=== PATIENT | female | born 1965 | race Caucasian/White ===

== ENCOUNTER → 2016-06-03 | Outpatient (CLI) | payer OTHER ==
--- NOTE | 2016-06-04 12:31 | MAMMOGRAPHY REPORT ---
BILATERAL DIGITAL SCREENING MAMMOGRAM TOMOSYNTHESIS WITH CAD: 06/03/2016 CLINICAL HISTORY: Routine screening. Patient has no complaints. TECHNIQUE: Breast tomosynthesis in addition to standard 2D mammography was performed. Current study was also evaluated with a Computer Aided Detection (CAD) system. COMPARISON: Comparison is made to exams dated: 05/29/2015 mammogram, 05/24/2014 mammogram, 05/19/2013 m ammogram, 05/14/2012 mammogram, 05/13/2011 mammogram, and 04/09/2010 mammogram - [facility]. BREAST COMPOSITION: There are scattered areas of fibroglandular density in both breasts. FINDINGS: There is slight interval increase in size of a lobulated 7 x 4 mm mass in the approximate 8:00 left breast. Although this could represent a fluctuating cyst, definitive characterization wi th ultrasound and possible additional mammographic views is recommended. There are other stable lobulated masses with lucent notches in each upper outer quadrant, which most likely represent intramammary lymph nodes. No new suspicious microcalcifications or focal areas of architectural distortion are identified. IMPRESSION: ACR BI-RADS CATEGORY 0: INCOMPLETE EVALUATION: NEED ADDITIONAL IMAGING EVALUATION The 7 mm mass in the left 8:00 breast needs additional evaluation. The patient will be called to schedule an appointment. Approximately 10% of breast cancers are not detected with mammography. A negative mammographic repor t should not delay biopsy if a clinically suggestive mass is present. Geeta Brooks M.D. ay/:06/03/2016 17:08:04 Family Literacy Coordinator: Kenia ANAYA(Parmjit)(Bridget), [facility] letter sent: Addl Imaging 0 BI-RADS Code: ACR BI-RADS Category 0: Incomplete Evaluation: Need Additional Imaging Evaluation
== END | disposition home or self-care (01) ==
LOC: C.MAMM 08:01
PROVIDERS: ATTEND Family Medicine
DX: Z12.31 Encounter for screening mammogram for malignant neoplasm of breast (principal); N63 Unspecified lump in breast

== ENCOUNTER → 2016-06-18 | Outpatient (CLI) | payer OTHER ==
--- NOTE | 2016-06-18 13:35 | MAMMOGRAPHY REPORT ---
ULTRASOUND OF BOTH BREASTS: 06/18/2016 CLINICAL HISTORY: Call back from screening mammography for a slight increase in size of a 7 mm lobul ated mass in the 8:00 left breast. COMPARISON: Comparison is made to exams dated: 05/29/2015 mammogram, 05/24/2014 mammogram, 05/19/2013 m ammogram, 05/14/2012 mammogram, 05/13/2011 mammogram, and 04/09/2010 mammogram - [facility]. FINDINGS: Targeted ultrasound was performed in the 8:00 to 9:00 axes of the left breast. In the 9: 00 breast, 4 cm from the nipple, there is a small cluster of microcysts versus cyst with internal no nvascular septations measuring 8.4 x 3.4 x 7.0 mm. This correlates well with the mammographic mass and is a benign cyst versus cyst cluster. No further workup is needed at this time. Recommend foll ow-up at time of next annual screening mammogram. IMPRESSION: ACR BI-RADS CATEGORY 2: BENIGN The slightly increasing lobulated oval mass in the 8:00 to 9:00 left breast correlates with a small cluster of microcysts versus cyst with multiple lobulations in the 9:00 left breast on ultrasound. This is benign and no further workup is needed at this time. Recommend follow-up in 1 year for next annual screening mammogram. These results and recommendations were discussed with the patient at the time of the exam. Geeta Brooks M.D. ay/:06/18/2016 12:31:24 Aviation Technical Systems Specialist: Dr. Geeta Brooks, [facility] letter sent: Normal 1/2 BI-RADS Code: ACR BI-RADS Category 2: Benign
== END | disposition home or self-care (01) ==
LOC: C.MAMM 10:53
PROVIDERS: ATTEND Family Medicine
DX: N63 Unspecified lump in breast (principal)

== ENCOUNTER → 2017-05-18 | Outpatient (CLI) | payer OTHER ==
[2017-05-18 12:26] LABS: BASO % 0.4 %; BASO ABS # 0.05 K/uL (0-0.2); EOS % 0.7 %; EOS ABS # 0.08 K/uL (0-0.5); HEMATOCRIT 37.5 % (37-47); HEMOGLOBIN 12.8 g/dL (12.0-16.0); IG# 0.24 K/uL (0.00-0.02); LYMPH % 24.1 %; LYMPH ABS # 2.79 K/uL (1.2-3.4); MEAN CELL VOLUME 95.2 fL (80-100); MEAN CORPUSCULAR HEMOGLOBIN 32.5 pg (25-34); MEAN CORPUSCULAR HGB CONC 34.1 g/dl (32-36); MEAN PLATELET VOLUME 9.6 fL (7.4-10.4); MONO % 8.5 %; MONO ABS # 0.98 K/uL (0.11-0.59); NEUT % 64.2 %; NEUT ABS # 7.42 K/uL (1.4-6.5); PLATELET COUNT 614 K/uL (130-400); RED CELL DISTRIBUTION WIDTH CV 12.6 % (11.5-14.5); RED CELL DISTRIBUTION WIDTH SD 43.6 fL (36.4-46.3); WHITE BLOOD COUNT 11.56 K/uL (4.8-10.8)
[2017-05-18 12:42] LABS: ALBUMIN 3.1 gm/dl (3.4-5.0); BLOOD UREA NITROGEN 4 mg/dl (7-18); CALCIUM 9.4 mg/dl (8.5-10.1); CARBON DIOXIDE 28 mmol/L (21-32); CREATININE 0.58 mg/dl (0.60-1.20); GLUCOSE 98 mg/dl (70-99); POTASSIUM 3.9 mmol/L (3.5-5.1); SODIUM 136 mmol/L (136-145)
[2017-05-18 12:45] LABS: ALKALINE PHOSPHATASE 150 U/L (45-117); ALT/SGPT 84 U/L (12-78); AST/SGOT 39 U/L (15-37); TOTAL PROTEIN 7.2 gm/dl (6.4-8.2)
== END | disposition home or self-care (01) ==
LOC: C.LABPVFM 09:49
PROVIDERS: ATTEND Nurse Practitioner Family
DX: R19.7 Diarrhea, unspecified (principal)

== ENCOUNTER → 2017-06-08 | Outpatient (CLI) | payer OTHER ==
--- NOTE | 2017-06-08 15:18 | MAMMOGRAPHY REPORT ---
BILATERAL DIGITAL SCREENING MAMMOGRAM TOMOSYNTHESIS WITH CAD: 06/08/2017 CLINICAL HISTORY: Routine screening. Patient has no complaints. TECHNIQUE: Breast tomosynthesis in addition to standard 2D mammography was performed. Current study was also evaluated with a Computer Aided Detection (CAD) system. COMPARISON: Comparison is made to exams dated: 06/18/2016 ultrasound, 06/03/2016 mammogram, 05/29/2015 ma mmogram, 05/24/2014 mammogram, 05/19/2013 mammogram, and 05/14/2012 mammogram - [facility]ter. BREAST COMPOSITION: There are scattered areas of fibroglandular density in both breasts. FINDINGS: No suspicious mass, architectural distortion or cluster of microcalcifications is seen. T here are stable intramammary lymph nodes in each lateral breast. IMPRESSION: ACR BI-RADS CATEGORY 1: NEGATIVE There is no mammographic evidence of malignancy. A 1 year screening mammogram is recommended. The pa tient will receive written notification of the results. Approximately 10% of breast cancers are not detected with mammography. A negative mammographic report should not delay biopsy if a clinically suggestive mass is present. Geeta Brooks M.D. ay/:06/08/2017 08:26:54 Histopathologist: Opal ANAYA(Parmjit)(Bridget), [facility] letter sent: Normal 1/2 BI-RADS Code: ACR BI-RADS Category 1: Negative
== END | disposition home or self-care (01) ==
LOC: C.MAMM 07:49
PROVIDERS: ATTEND Nurse Practitioner Family
DX: Z12.31 Encounter for screening mammogram for malignant neoplasm of breast (principal)

== ENCOUNTER → 2017-07-22 | Outpatient (CLI) | payer OTHER | END | disposition home or self-care (01) | LOC: C.LABPVFM 08:38 | PROVIDERS: ATTEND Registered Nurse | DX: R94.6 Abnormal results of thyroid function studies (principal) ==

== ENCOUNTER 2021-02-08 19:35 | Observation (INO) ==
[2021-02-08 22:09] LABS: Basophils # (auto) 0.04 K/uL (0-0.2); Basophils % (auto) 0.2 %; Eosinophils # (auto) 0.04 K/uL (0-0.5); Eosinophils % (auto) 0.2 %; Hematocrit (blood only) 40.5 % (37-47); Hemoglobin 14.3 g/dL (12.0-16.0); Immature Granulocytes # (auto) 0.09 K/uL (0.00-0.02); Immature Granulocytes % (auto) 0.4 %; Lymphocytes # (auto) 2.46 K/uL (1.2-3.4); Lymphocytes % (auto) 12.1 %; Mean Corpuscular Hemoglobin 32.8 pg (25-34); Mean Corpuscular Hgb Conc 35.3 g/dL (32-36); Mean Corpuscular Volume 92.9 fL (80-100); Mean Platelet Volume 9.2 fL (7.4-10.4); Monocytes # (auto) 0.84 K/uL (0.11-0.59); Monocytes % (auto) 4.1 %; Neutrophils # (auto) 16.85 K/uL (1.4-6.5); Platelet Count 507 K/uL (130-400); RDW Coefficient of Variation 13.2 % (11.5-14.5); RDW Standard Deviation 44.9 fL (36.4-46.3); Red Blood Count 4.36 M/uL (4.2-5.4); White Blood Count 20.32 K/uL (4.8-10.8)
[2021-02-08 22:19] LABS: Appearance Urine Cloudy (Clear); Bacteria Urine Automated Negative (Negative); Bilirubin Urine Negative (Negative); Blood Urine Trace (Negative); Color Urine Yellow; Epithelial Cell Urine Auto >30 /lpf (0-5); Glucose Urine UA Negative (Negative); Ketones Urine Trace (Negative); Leukocyte Esterase Urine Negative (Negative); Nitrite Urine Negative (Negative); Specific Gravity Urine 1.017 (1.000-1.030); Urobilinogen Urine Negative (Negative); pH Urine 7.5 (4.5-7.5)
[2021-02-08 22:29] LABS: Protein Urine Trace (Negative)
[2021-02-08 22:30] LABS: Albumin Level 4.3 gm/dl (3.4-5.0); BUN Creatinine Ratio 9.5 (10-20); Calcium 9.3 mg/dl (8.5-10.1); Creatinine Clr Calc Pharmacy 79.2 ml/min; Est GFR (African American) 105.2 ml/min; Est GFR (Non-African American) 90.8 ml/min; Potassium 3.7 mmol/L (3.5-5.1)
[2021-02-08 22:33] LABS: Albumin Globulin Ratio 1.2 (0.9-2); Bilirubin,Total 0.6 mg/dl (0.2-1); Globulin 3.7 gm/dl (2.5-4.0)
[2021-02-09] MEDS ORDERED: OPTIRAY 320 100ml IV ONE
[2021-02-09] MEDS ORDERED: KETOROLAC TROMETHAMINE 15 MG/ML VIAL IV ONE (00:18)
[2021-02-09] MEDS ORDERED: cefOXitin 2,000 MG/60 ML BAG IV STA (00:22)
--- NOTE | 2021-02-09 00:41 | History & Physical Report ---
Date of Service February 09, 2021 Assessment & Plan (1) Acute appendicitis: Plan: Due to the patient's clinical presentation along with imaging she will be placed in the hospital on observation status with plans to perform an appendectomy. Analgesics will be provided Antiemetics will be provided We will continue antibiotics. She has received her first dose of cefoxitin in the emergency department this antibiotic will be continued We will maintain n.p.o. status We will hydrate gently with IV fluids We will check a preoperative chest x-ray We will check a preoperative EKG I have discussed the operation with the patient. I discussed the risks, benefits, and alternatives as well as gone over the expected postoperative recovery and she wishes to proceed. We will use SCDs for DVT prevention. No chemical means to be used in anticipation of surgery (2) Hypertension: Plan: Patient may have elevated blood pressure due to the fact that she was previously taking antihypertensive medication but is stopped taking this medication. In the short-term we will utilize as needed IV hydralazine. If she remains persistently hypertensive we will request a hospitalist consultation. (3) Hyponatremia: Plan: Because of patient's hyponatremia is unclear. Could be due to poor oral intake with her acute illness. Her medicines have been reviewed and there are no obvious offending medications that would have caused this issue. She will be hydrated with IV fluids as noted above we will repeat labs in the morning. History of Present Illness Chief Complaint: Abdominal pain Primary Care Provider: Jas Wray III, BRENDA This is a 56-year-old female who presented to [facility] emergency department secondary to abdominal pain. Patient notes that the pain has been present for approximately 24 hours. The pain is located throughout her abdomen and generalized fashion. Patient notes that she suffers from irritable bowel syndrome alternating with episodes of constipation and diarrhea and notes that the pain initially began in pain that was similar to what she experienced from discomfort from her irritable bowel syndrome. She does note that the pain became somewhat more severe and did not resolve like it usually does so she presented to the emergency department. She denies any radiation of the pain. She notes that the pain is worse with certain movements and is improved with lying still with her knee slightly bent. She has had some nausea without any vomiting. She has had poor oral intake over the past 24 hours. Her most recent oral intake was some water several hours ago. She denies any prior abdominal surgeries. In the emergency department patient had labs and imaging which independent reviewed. CT scan of the abdomen pelvis showed the patient had a distended and thickened and inflamed appendix. A 6 mm appendicolith was noted in the distal appendix measured approximately 12 mm. These findings were felt to be consistent with acute appendicitis. CBC revealed white blood cell count was elevated at 20.32. Her hemoglobin and hematocrit were both within normal range. Platelet count was slightly elevated at 507,000. A chemistry profile showed sodium was 129. Potassium, BUN, and creatinine were all within normal range. Urinalysis was not indicative of infection. A Covid test has been performed and is pending. In addition test has not been performed as the patient reports she has already gone through menopause. Patient was noted to be hypertensive in the emergency department. Patient says that she was previously taking an antihypertensive medication but she stopped this as it made her cough. Patient notes that she is fairly active when she is feeling well. She says that she feels she can easily negotiate 2 flights of steps without any chest pain or shortness of breath. At the time of my interview the patient is resting comfortably in bed she was in no distress Allergies Allergy/AdvReac Type Severity Reaction Status Date / Time Sulfa (Sulfonamide Allergy Unknown Unknown Verified 02/09/21 02:45 Antibiotics) Home Medications Medication Instructions Recorded Confirmed Type calcium carbonate 600 mg (1,500 1 tab PO QAM 02/09/21 02/09/21 History mg)-vitamin D3 200 unit tablet (Calcium 600 + D(3)) cholecalciferol (vitamin D3) 25 25 mcg PO QAM 02/09/21 02/09/21 History mcg (1,000 unit) tablet (Vitamin D3) multivitamin 1 tab PO QAM 02/09/21 02/09/21 History Past Med/Surg History Social History Smoking Status: Never smoker Hx Alcohol Use: Yes Hx Substance Use: No Preferred Language: Persian Communication Ability: Effective Hose Builder Required: No Beliefs That Will Affect Care: None Current Living Situation: Spouse Other Information That Helps Us Care for You: No Feels Safe at Home: Yes Safety Concerns: Feels Safe At This Time Assistive Devices: Glasses Review of Systems Constitutional: no fever and no chills Eyes: no diplopia Ear, Nose, Mouth, Throat: no ear pain Respiratory: no cough and no dyspnea Cardiovascular: no chest pain Gastrointestinal: + abdominal pain and + nausea; no vomiting Genitourinary: no dysuria Musculoskeletal: no back pain Integumentary: no rash Neurologic: no localized weakness Physical Exam Constitutional: well developed and well nourished; no acute distress Eyes: no conjunctival abnormality wears glasses ENMT: Ears: no hearing impairment and no external ear abnormality Neck: trachea midline Respiratory: normal respiratory effort, lungs clear to auscultation Cardiovascular: Rate/Rhythm: regular rate and regular rhythm Gastrointestinal (Abdomen): abdomen is soft without distention; BS are present; pain noted with palpation in RLQ over McBurnery's point Musculoskeletal: no calf tenderness Skin: no rashes Neurologic: moves all extremities Psychiatric: A+Ox3, euthymic affect Results & Data Results & Data ([facility]) Vital Signs (Past 12 Hours) Vital Signs Temp Pulse Pulse Resp BP BP Pulse Ox 02/09/21 00:01 89 16 200/103 H 98 02/08/21 19:38 36.2 C L 98 H 16 224/119 H 100 Supervising Physician Co-Signing Physician Notes Patient seen and examined, labs and imaging reviewed, agree with above. 56-year-old female with periumbilical pain that migrated to her right lower quadrant. On exam she is afebrile with stable vitals. Tender to palpation in right lower quadrant with localized guarding. Labs with leukocytosis. CT scan personally reviewed and interpreted, shows acute nonperforated appendicitis. Plan for laparoscopic appendectomy The risk the procedure were discussed to include but not limited to bleeding, infection, normal appendix, damage surrounding structures, need for future more extensive surgery, conversion open, and the risk of anesthesia Potential discharge this afternoon versus tomorrow depending on clinical course PG Care Time/CCT Total # of Minutes Spent Total Time Spent with Patient: Total time spent is greater than 50% in coordination of care (as documented) at patient's floor/unit and/or counseling patient: Coding Level of Care Code INT OBSERVATION CARE 70M LVL 3 Diagnoses Acute appendicitis K35.80 Acute appendicitis type: unspecified acute appendicitis type Hypertension I10 Hyponatremia E87.1 (1) Acute appendicitis Acute appendicitis type: unspecified acute appendicitis type Qualified Code(s): K35.80 - Unspecified acute appendicitis
[2021-02-09] MEDS ORDERED: MoRPHine SULFATE 4 MG/ML 1 ML CARP\\VIAL IV PRN ×2 (00:42→14:56)
[2021-02-09] MEDS ORDERED: ONDANSETRON INJ 2 MG/ML 2 ML VIAL IV PRN ×2 (00:42→12:43)
--- NOTE | 2021-02-09 00:45 | Emergency Department Note ---
Impression & Plan Acute appendicitis, Abdominal pain, Leukocytosis ED Provider Note NAME: SALOME CARLSON AGE: 56 SEX: F : 1965 ARRIVES VIA: Walk-In INFORMANT: Patient ED PROVIDER(S): Milton Patton DO CHIEF COMPLAINT: Abdominal pain HPI: Patient is a 56-year-old female who presents ER for lower abdominal pain located in the right lower quadrant suprapubic region which started earlier this morning. She has some diarrhea. No vomiting. Denies any dysuria urgency or frequency. She notes supporting her belly makes it feel better. She has some associated nausea. She has a mild headache but no change in vision. No chest pain or shortness of breath. No other exacerbating or remitting factors. Pain is sharp and stabbing. Is fairly constant and feels as though she has to go to the bathroom. ROS: See above HPI for pertinent positives & negatives. A total of 10 systems reviewed and were otherwise negative. PAST MEDICAL HISTORY:See Below PAST SURGICAL HISTORY:See Below FAMILY HISTORY:See Below SOCIAL HISTORY:See Below HOME MEDICATIONS:See Below ALLERGIES:See Below VITALS:See Below PHYSICAL EXAMINATION: GENERAL: Sitting up in bed, alert, well appearing, well nourished, no distress, non-toxic EYE EXAM: normal conjunctiva. OROPHARYNX: no exudate, no erythema, lips, buccal mucosa, and tongue normal and mucous membranes are moist NECK: supple, no nuchal rigidity, no adenopathy, non-tender LUNGS: Clear to auscultation. Normal chest wall mechanics HEART: no murmurs, S1 normal and S2 normal ABDOMEN: abdomen soft, tender palpation right lower quadrant, normo-active bowel sounds, no masses, no rebound or guarding. UPPER EXTREMITIES: upper extremities are grossly normal. LOWER EXTREMITIES: No pitting edema. NEURO EXAM: Normal sensorium, cranial nerves II-XII grossly intact, normal speech, no gross weakness of arms, no gross weakness of legs. MEDICAL DECISION MAKING: Patient is a 56-year-old female who presents the ER for lower abdominal pain. IV was established blood work was obtained. Labs show leukocytosis of 20,000. No significant anemia. BMP with mild hyponatremia at 129. LFTs bilirubin and lipase is unremarkable. UA was contaminated. CT abdomen pelvis showed acute appendicitis. Patient was given IV fluids, Toradol and cefoxitin. Discussed with Juan Jose Mott from general surgery who evaluate the patient at bedside and will admit the patient. Blood pressure was significantly elevated at 200. Question if this is secondary to pain although she notes it is fairly mild. Will defer to admitting team. Triage Nursing notes reviewed. Limited review of prior medical records performed Vital Signs: reviewed and remarkable for HTN Differential diagnosis: Differential diagnoses includes but is not limited to gastritis, peptic ulcer disease, GERD, gallbladder disease, pancreatitis, small bowel obstruction, acute coronary syndrome, pericarditis, ischemic bowel, irritable bowel disease, irritable bowel syndrome, appendicitis, diverticulitis, malignancy, hernia, urinary tract infection, torsion, perforation, trauma, infectious. ER treatment provided: See below Diagnostics interpreted by me: ECG: none Cardiac Monitoring: An order was placed for continuous cardiac monitoring. The monitor shows a rate of 82 with sinus rhythm. Laboratory studies: As stated above and show below. Imaging studies: CT abdomen pelvis shows acute appendicitis Consultation(s): Discussed with Juan Jose Mott from general surgery Procedures: none Critical Care: None Past Med/Surg History Social History Smoking Status: Never smoker Feels Safe at Home: Yes Allergies Allergies Allergy/AdvReac Type Severity Reaction Status Date / Time N Allergy Unknown Uncoded 06/09/02 15:18 SULFA Allergy Unknown Uncoded 06/09/02 15:18 Home Meds Previous Rx's Medication Instructions Recorded albuterol sulfate 90 mcg/actuation See Rx Instructions INHALATION 03/12/20 aerosol inhaler (Ventolin HFA) .COMPLEX PRN #8.5 g azelastine 137 mcg (0.1 %) nasal 2 spray INTRANASAL BID #30 ml 03/12/20 spray aerosol prednisone 10 mg tablet See Rx Instructions PO DAILY #30 03/12/20 tab Results & Data (ED) Vital Signs Vital Signs - 24 hr 02/08/21 19:38 02/09/21 00:01 Temperature 36.2 C L Temperature Source Temporal Artery Scan Pulse Rate 98 H Pulse Rate [Right] 89 Pulse Rhythm [Right] Regular Pulse Strength [Right] Normal Respiratory Rate 16 16 Respiratory Effort / Characteristics Non-Labored Spontaneous Non-Labored Spontaneous Respiratory Depth Normal Blood Pressure 224/119 H Blood Pressure [Right Arm] 200/103 H Blood Pressure Mean 154 Blood Pressure Mean [Right Arm] 135 Blood Pressure Position Sitting Blood Pressure Position [Right Arm] Lying Pulse Oximetry 100 98 Oxygen Delivery Method Room Air Room Air Sepsis Recent Fever Within 48 Hours No Sepsis New/Unexplained Change in Mental Status N/A Sepsis Action Taken by Nursing No Action Required Laboratory Data Result diagrams: 02/08/21 21:58 02/08/21 21:58 Lab Results 02/08/21 02/08/21 02/08/21 Range/Units 21:58 21:58 21:58 WBC 20.32 H (4.8-10.8) K/uL RBC 4.36 (4.2-5.4) M/uL Hgb 14.3 (12.0-16.0) g/dL Hct 40.5 (37-47) % MCV 92.9 (80-100) fL MCH 32.8 (25-34) pg MCHC 35.3 (32-36) g/dL RDW Std Deviation 44.9 (36.4-46.3) fL RDW Coeff of Danny 13.2 (11.5-14.5) % Plt Count 507 H (130-400) K/uL MPV 9.2 (7.4-10.4) fL Immature Gran % (Auto) 0.4 % Neut % (Auto) 83.0 % Lymph % (Auto) 12.1 % [place] % (Auto) 4.1 % Eos % (Auto) 0.2 % Baso % (Auto) 0.2 % Neut # (Auto) 16.85 H (1.4-6.5) K/uL Lymph # (Auto) 2.46 (1.2-3.4) K/uL [place] # (Auto) 0.84 H (0.11-0.59) K/uL Eos # (Auto) 0.04 (0-0.5) K/uL Baso # (Auto) 0.04 (0-0.2) K/uL Immature Gran # (Auto) 0.09 H (0.00-0.02) K/uL Sodium 129 L (136-145) mmol/L Potassium 3.7 (3.5-5.1) mmol/L Chloride 98 (98-107) mmol/L Carbon Dioxide 25 (21-32) mmol/L Anion Gap 6.0 (3-11) BUN 7 (7-18) mg/dl Creatinine 0.73 (0.6-1.2) mg/dl Est Cr Clr Drug Dosing 79.2 ml/min Est GFR ( Amer) 105.2 ml/min Est GFR (Non-Af Amer) 90.8 ml/min BUN/Creatinine Ratio 9.5 L (10-20) Glucose 129 H (70-99) mg/dl Calcium 9.3 (8.5-10.1) mg/dl Total Bilirubin 0.6 (0.2-1) mg/dl AST 15 (15-37) U/L ALT 33 (12-78) U/L Alkaline Phosphatase 89 (45-117) U/L Total Protein 8.0 (6.4-8.2) gm/dl Albumin 4.3 (3.4-5.0) gm/dl Globulin 3.7 (2.5-4.0) gm/dl Albumin/Globulin Ratio 1.2 (0.9-2) Lipase 100 (73-393) U/L Urine Color Yellow Urine Appearance Cloudy A (Clear) Urine pH 7.5 (4.5-7.5) Ur Specific [place] 1.017 (1.000-1.030) Urine Protein Trace H (Negative) Urine Glucose (UA) Negative (Negative) Urine Ketones Trace H (Negative) Urine Blood Trace H (Negative) Urine Nitrite Negative (Negative) Urine Bilirubin Negative (Negative) Urine Urobilinogen Negative (Negative) Ur Leukocyte Esterase Negative (Negative) Urine WBC (Auto) 1-5 (0-5) /hpf Urine RBC (Auto) 5-10 H (0-4) /hpf U Hyaline Cast (Auto) 1-5 (0-5) /lpf U Epithel Cells (Auto) >30 H (0-5) /lpf Urine Bacteria (Auto) Negative (Negative) Administered Medications Cefoxitin Sodium (Mefoxin) 2,000 mg in 60 mls @ 100 mls/hr IV NOW STA Stop: 02/09/21 00:57 Last Admin: 02/09/21 00:32 Dose: 100 mls/hr Documented by: [id number] Discontinued Medications Ioversol (Optiray 320 100ml) 94 ml IV ONCE ONE Stop: 02/09/21 00:01 Last Admin: 02/09/21 00:01 Dose: 94 ml Documented by: [id number] Ketorolac Tromethamine (Ketorolac Tromethamine 15 Mg/Ml Vial) 15 mg IV NOW ONE Stop: 02/09/21 00:19 Last Admin: 02/09/21 00:25 Dose: 15 mg Documented by: [id number] Discharge Plan Visit Data Chief Complaint: Abdominal Pain Stated Complaint: ABDOMINAL PAIN WORSENING OVER THE DAY ED Provider: Milton Patton Discharge Problem: Acute appendicitis, Abdominal pain, Leukocytosis Forms Stand Alone Forms: [facility] [email or web address] Prescriptions Prescriptions: No Action azelastine 137 mcg (0.1 %) aerosol,spray 2 spray intranasal BID Qty: 30 RF: 2 albuterol sulfate [Ventolin HFA] 90 mcg/actuation HFA aerosol inhaler See Rx Instructions inhalation .COMPLEX PRN (Reason: shortness of breath or wheezing) Qty: 8.5 RF: 0 prednisone 10 mg tablet See Rx Instructions PO DAILY Qty: 30 RF: 0 Referrals Referrals: Jas Wray III, CRNP [Primary Care Provider] - Discharge Problem: Acute appendicitis Qualifiers: Acute appendicitis type: unspecified acute appendicitis type Qualified Code(s): K35.80 - Unspecified acute appendicitis Abdominal pain Qualifiers: Abdominal location: unspecified location Qualified Code(s): R10.9 - Unspecified abdominal pain Leukocytosis Qualifiers: Leukocytosis type: unspecified Qualified Code(s): D72.829 - Elevated white blo od cell count, unspecified
[2021-02-09] MEDS ORDERED: hydrALAZINE HCL 20 MG/ML VIAL IV PRN (01:04)
[2021-02-09] MEDS: LACTATED RINGER'S 1,000 ML IV SCH ×2 (04:49→14:58)
[2021-02-09] MEDS: cefOXitin 2,000 MG in DEXTROSE 5% 50 ML IV SCH ×3 (05:30→17:50)
--- NOTE | 2021-02-09 05:55 | Surgery Progress Note ---
Date of Service February 09, 2021 Assessment & Plan (1) Acute appendicitis: Plan: Continue analgesics Continue antiemetics Continue antibiotics in the form of cefoxitin We will maintain n.p.o. status Continue hydration with IV fluids Preoperative chest x-ray did not show any evidence of pneumonia or CHF EKG did not show any evidence of ischemic changes Covid test has been performed and is noted to be negative Plan remains to have patient undergo appendectomy later today We will use SCDs for DVT prevention. No chemical means to be used in anticipation of surgery (2) Hypertension: Plan: BP is improved with the use of intravenous hydralazine. We will continue to monitor (3) Hyponatremia: Plan: A.m. labs this morning are pending Admission and Anticipated Discharge Date Admission Date: February 09, 2021 Supervising Physician Co-Signing Physician Notes Patient seen and examined, labs and imaging reviewed, agree with above. 56-year-old female with periumbilical pain that migrated to her right lower quadrant. On exam she is afebrile with stable vitals. Tender to palpation in right lower quadrant with localized guarding. Labs with leukocytosis. CT scan personally reviewed and interpreted, shows acute nonperforated appendicitis. Plan for laparoscopic appendectomy The risk the procedure were discussed to include but not limited to bleeding, infection, normal appendix, damage surrounding structures, need for future more extensive surgery, conversion open, and the risk of anesthesia Potential discharge this afternoon versus tomorrow depending on clinical course Subjective Patient is resting comfortably in bed. She continues to have right lower quadrant abdominal pain although it is no worse than what was noted at the time of my exam in the emergency department. She denies any nausea or vomiting. She denies any fevers, shakes, chills. Physical Exam Gastrointestinal (Abdomen): Pain noted with palpation in the right lower quadrant of the abdomen. This is similar to what was noted at time of exam in the emergency department Results & Data ([facility]) Vital Signs (Past 12 Hours) Vital Signs Temp Pulse Pulse Pulse Resp BP BP 02/09/21 04:45 36.7 C 93 H 17 117/98 02/09/21 04:04 81 16 02/09/21 02:32 74 16 02/09/21 00:01 89 16 02/08/21 19:38 36.2 C L 98 H 16 224/119 H BP Pulse Ox 02/09/21 04:45 98 02/09/21 04:04 179/94 H 98 02/09/21 02:32 184/100 H 99 02/09/21 00:01 200/103 H 98 02/08/21 19:38 100 PG Care Time/CCT Total # of Minutes Spent Total Time Spent with Patient: Total time spent is greater than 50% in coord ination of care (as documented) at patient's floor/unit and/or counseling patient: Coding Level of Care Code None Diagnoses Acute appendicitis K35.80 Acute appendicitis type: unspecified acute appendicitis type Hypertension I10 Hyponatremia E87.1 (1) Acute appendicitis Acute appendicitis type: unspecified acute appendicitis type Qualified Code(s): K35.80 - Unspecified acute appendicitis
[2021-02-09] MEDS: ACETAMINOPHEN 1,000 MG/100 ML VIAL IV PRN ×3 (06:04→22:33)
[2021-02-09 06:45] LABS: BUN Creatinine Ratio 4.8 (10-20); Calcium 9.7 mg/dl (8.5-10.1); Creatinine Clr Calc Pharmacy 47.8 ml/min; Est GFR (African American) 57.7 ml/min; Est GFR (Non-African American) 49.8 ml/min; Potassium 3.6 mmol/L (3.5-5.1)
[2021-02-09] MEDS ORDERED: FAMOTIDINE/PF 20 MG/2 ML VIAL IV ONE (08:10)
--- NOTE | 2021-02-09 08:24 | CT Scan Report ---
ABDOMEN AND PELVIS CT WITH IV CONTRAST CT DOSE: 476.72 mGy.cm HISTORY: mid abd pain TECHNIQUE: Multiaxial CT images of the abdomen and pelvis were performed following the use of intrave nous contrast. A dose lowering technique was utilized adhering to the principles of ALARA. COMPARISON STUDY: None. FINDINGS: The lung bases are clear. No pneumoperitoneum. No pneumatosis. No fractures within the visu alized osseous structures. The liver, gallbladder, spleen, right adrenal gland, pancreas, and kidneys are unremarkable. There is an indeterminate 3 cm left adrenal gland mass. No retroperitoneal lymphad enopathy. Normal caliber abdominal aorta. Dilated and thick-walled appendix measuring up to 12 mm in diameter. There is a 6 mm appendicolith and periappendiceal fat stranding. This is consistent with ac itzel appendicitis. No perforation or abscess identified. The bladder, uterus, bilateral adnexa are wit hin normal limits. Colonic diverticulosis. No evidence for acute diverticulitis. No dilated loops of small bowel to suggest an obstruction. IMPRESSION: 1. Acute appendicitis. 2. A 3 cm indeterminate left adrenal gland mass. This could be further assessed with follow-up noneme rgent dedicated adrenal CT or MRI. ACT 112: Positive. There are findings on this exam that require communication between the performing entity and the patient following Patient Test Result Information Act ([place] Act 112) guidelines. Electronically signed by: Pj Gleason M.D. 02/09/2021 8:23 AM
--- NOTE | 2021-02-09 09:21 | XRay Report ---
XR chest 1V portable HISTORY: Acute appendicitis. Preop. COMPARISON: None. FINDINGS: No pneumothorax. No pleural effusions. Left basilar linear densities consistent with subseg mental atelectasis. Otherwise, the lungs are clear. The heart is normal in size. IMPRESSION: No acute process. ACT 112: Negative or not required by law. Electronically signed by: Pj Gleason M.D. 02/09/2021 9:20 AM
--- NOTE | 2021-02-09 09:24 | Anesthesiology Consultation ---
Date of Service February 09, 2021 Assessment & Plan (1) Encounter for pre-operative examination: Chart Review Chart Review: Acceptable Risk for Surgery and Patient NOT seen in Pre Admission Testing Consults Requested none ASA ASA2 Proposed Anesthesia Anesthesia Type: General Risk / Benefits Reviewed With: PT / POA / Parent / Guardian, Accepts Plan and Informed Consent Obtained History Surgery Operation Date: 02/09/21 11:00 Proposed Procedures p Laparoscopic Appendectomy - Mak Lorenzo, , FACS Height/Weight Height: 5 ft 2 in Weight: 73.1 kg Allergies Allergy/AdvReac Type Severity Reaction Status Date / Time Sulfa (Sulfonamide Allergy Unknown Unknown Verified 02/09/21 02:45 Antibiotics) Medications Home Medications Medication Instructions Recorded Confirmed Last Taken calcium carbonate 600 mg (1,500 1 tab PO QAM 02/09/21 02/09/21 02/08/21 mg)-vitamin D3 200 unit tablet (Calcium 600 + D(3)) cholecalciferol (vitamin D3) 25 25 mcg PO QAM 02/09/21 02/09/21 02/08/21 mcg (1,000 unit) tablet (Vitamin D3) multivitamin 1 tab PO QAM 02/09/21 02/09/21 02/08/21 Active Medications Generic Name Dose Route Start Last Admin Trade Name Freq PRN Reason Stop Dose Admin Lactated Ringer's 1,000 mls @ 75 mls/hr 02/09/21 00:45 02/09/21 11:59 Lr IV 03/11/21 00:44 75 mls/hr .[id number] GANESH Infusion Cefoxitin Sodium 2,000 mg/ 60 mls @ 100 mls/hr 02/09/21 06:00 02/09/21 11:58 Dextrose IV 02/19/21 05:59 Infused Q6H GANESH Infusion Acetaminophen 1,000 mg in 100 mls @ 400 mls/hr 02/09/21 00:42 02/09/21 06:22 Ofirmev IV 02/12/21 00:41 Infused Q8H PRN Infusion Pain NPO Date Last Intake of Fluids: 02/09/21 Time Last Intake of Fluids: 00:00 Date Last Intake of Solids: 02/09/21 Time Last Intake of Solids: 00:00 Past Medical History IBS Exercise / Class Metabolic Activity II 4-5 Yardwork/Stairs/Walk up hill Negative for chest pain or shortness of breath. Patient denies active symptoms of GERD. Past Surgical History No surgical history Past Anesthesia History No Family Hx of Anesthesia Complications History of PONV Hx of Motion Sickness Social History Smoking Status: Never smoker Hx Alcohol Use: Yes alcohol intake frequency: holidays/special occasions only Hx Substance Use: No Review of Systems Patient denies active symptoms of GERD. Negative for chest pain or shortness of breath. Physical Exam Vital Signs Last Vital Signs Temp 36.6 C 02/09/21 07:06 Pulse 88 02/09/21 07:06 Resp 16 02/09/21 07:06 BP 128/81 02/09/21 07:06 Pulse Ox 95 02/09/21 07:06 Constitutional not obese ENMT Mouth: no TMJ abnormality and oral opening not small Thyromental Distance: > or= 3.5 Finger Breadths Mallampati Class: II Neck normal visual inspection; neck extension not limited Respiratory normal respiratory effort Auscultation: lungs clear to auscultation bilaterally Cardiovascular Rate/Rhythm: regular rate and regular rhythm Heart Sounds: no murmur Neurologic moves all extremities Psychiatric Orientation: alert and oriented x 3 Testing Laboratory Results 02/08/21 21:58 02/09/21 05:49 Urine Color Yellow 02/08/21 21:58 Urine Appearance Cloudy (Clear) A 02/08/21 21:58 Urine pH 7.5 (4.5-7.5) 02/08/21 21:58 Ur Specific [place] 1.017 (1.000-1.030) 02/08/21 21:58 Urine Protein Trace (Negative) H 02/08/21 21:58 Urine Glucose (UA) Negative (Negative) 02/08/21 21:58 Urine Ketones Trace (Negative) H 02/08/21 21:58 Urine Nitrite Negative (Negative) 02/08/21 21:58 Ur Leukocyte Esterase Negative (Negative) 02/08/21 21:58 Urine WBC (Auto) 1-5 /hpf (0-5) 02/08/21 21:58 Urine RBC (Auto) 5-10 /hpf (0-4) H 02/08/21 21:58 U Hyaline Cast (Auto) 1-5 /lpf (0-5) 02/08/21 21:58 U Epithel Cells (Auto) >30 /lpf (0-5) H 02/08/21 21:58 Urine Bacteria (Auto) Negative (Negative) 02/08/21 21:58 Electrocardiogram Date: 02/09/21 Findings: + NSR @ (90) RSR primeor QR pattern in V1 suggest right ventricular conduction delay, Prolonged QT,
[2021-02-09] MEDS ORDERED: MIDAZOLAM HCL 1 MG/ML 2ML VIAL ONE (12:26)
[2021-02-09] MEDS ORDERED: fentaNYL citrate 100 MCG/2 ML VIAL ONE ×3 (12:26→13:46)
[2021-02-09] MEDS ORDERED: LIDOCAINE 2% 2 ML VIAL/AMP(20MG/ML) INFIL ONE (12:27)
[2021-02-09] MEDS ORDERED: PROPOFOL IV EMULSION 10 MG/ML 20 ML VIAL IV ONE (12:30)
[2021-02-09] MEDS ORDERED: ROCURONIUM BROMIDE 10 MG/ML 5 ML VIAL IV ONE (12:30)
[2021-02-09] MEDS ORDERED: SCOPOLAMINE 1 MG TDSY TD ONE ×2 (12:38→12:43)
[2021-02-09] MEDS ORDERED: fentaNYL citrate 100 MCG/2 ML VIAL IV PRN (12:43)
[2021-02-09] MEDS ORDERED: PROMETHAZINE HCL 12.5 MG in SODIUM CHLORIDE 0.9% 50 ML IV PRN (12:43)
[2021-02-09] MEDS ORDERED: ATROPINE SULFATE 0.1 MG/ML 10ML SYR IV PRN (12:43)
[2021-02-09] MEDS ORDERED: ePHEDrine sulfate 50 MG/ML AMP IV PRN (12:43)
[2021-02-09] MEDS ORDERED: BUPIVACAINE 0.5 % 5 MG/1 ML MPF 30ML VIAL ONE (12:53)
[2021-02-09] MEDS ORDERED: ONDANSETRON INJ 2 MG/ML 2 ML VIAL ONE (13:10)
[2021-02-09] MEDS ORDERED: METOCLOPRAMIDE HCL INJ 5 MG/ML 2 ML VIAL ONE (13:10)
[2021-02-09] MEDS ORDERED: DEXAMETHASONE SOD INJ 4 MG/ML VIAL ONE (13:10)
[2021-02-09] MEDS ORDERED: PHENYLEPHRINE HCL 10 MG/ML VIAL ONE (13:10)
[2021-02-09] MEDS ORDERED: NEOSTIGMINE METHYLSULFATE 1 MG/ML 10ML VIAL ONE (13:39)
[2021-02-09] MEDS ORDERED: GLYCOPYRROLATE 0.2 MG/ML VIAL ONE (13:39)
--- NOTE | 2021-02-09 13:51 | Operative Report ---
PG Post Operative Report Pre & Post Diagnosis Operation Date: 02/09/21 11:00 Pre-Op Diagnosis: acute appendicitis Post-Op Diagnosis: acute appendicitis I identified the patient and participated in the time-out.: Yes Procedure Operation Date: 02/09/21 11:00 Actual Procedures p Laparoscopic Appendectomy(Not Applicable) - Mak Lorenzo DO, JOAQUIN Surgeon Mak Lorenzo DO, JOAQUIN Last Chalker Nathan Alcantara MS 2 Estimated Blood Loss 5 Findings Consistent with Post-Op Diagnosis Acute, suppurative, nonperforated appendicitis Specimens Appendix Anesthesia Type General Complications none Disposition Accompanied Patient To Recovery: No Disposition: Recovery Room Indications 56-year-old female with signs and symptoms of acute appendicitis confirmed by CT scan, plan for laparoscopic appendectomy. The risks of the procedure were discussed, all questions were answered, and the patient agreed to proceed with surgery as planned. Description of Procedure The patient was properly identified, consented, and taken to the operating room where she was placed in the supine position. General endotracheal anesthesia was induced. SCDs and a safety belt were placed. Preoperative antibiotics were administered. A Hall catheter was not placed. The patient's abdomen was prepped and draped in the standard sterile fashion. Surgical timeout was performed and all parties were in agreement that this was the correct patient and procedure to be performed and we continued as planned. A curvilinear infraumbilical incision was made with electrocautery and deepened down to the fascia with blunt dissection. The base of the umbilicus was grasped with a Jean and elevated towards the ceiling. An incision was made in the midline fascia with a knife and entry into the peritoneum was confirmed. Stay suture of 0 Vicryl was placed and a Gutierrez trocar was inserted. The abdomen was insufflated with carbon dioxide which the patient tolerated without incident. The laparoscope was inserted and no damage from initial trocar placement was noted, no gross abnormalities were noted within the 4 quadrants the abdomen. 5 mm ports were then placed in the left lower quadrant with care not to damage the epigastric vessels, and in the suprapubic midline with care not to damage the bladder. The patient was placed in Trendelenburg position and rotated towards the left. The small bowel was swept away from the right lower quadrant. The cecum was grasped with an atraumatic grasper exposing the appendix. The appendix was moderately inflamed with fibrinous exudate and there was no evidence of perforation. There was serosanguineous fluid in the pelvis. A window was created between the base of the appendix and the mesoappendix. A cuadra loaded endoscopic stapler was then used to divide the appendix at its base. A cuadra load was then used to divide the mesoappendix. Hemostasis was good. The appendix was placed in an Endo Catch bag and removed through the umbilical port site. The right lower quadrant and pelvis was irrigated and hemostasis was found to be good. 5 mm trochars were removed under direct visualization and the abdomen was allowed to collapse. The umbilical port site fascia was closed with 0 Vicryl suture. The wound was irrigated, and the skin of all ports was closed with 4-0 Monocryl subcuticular sutures. Dermabond was placed over the wounds. The patient was extubated in the operating room and taken to the PACU where she recovered without apparent incident. All sponge, instrument and needle counts were correct at the conclusion of the procedure. The patient tolerated the procedure well. I attest to the content of the Intraoperative Record and any orders documented therein. Any exceptions are noted below.
--- NOTE | 2021-02-09 13:52 | Electrocardiogram Report ---
Test Reason : Blood Pressure : / mmHG Vent. Rate : 090 BPM Atrial Rate : 090 BPM P-R Int : 138 ms QRS Dur : 092 ms QT Int : 396 ms P-R-T Axes : 019 026 023 degrees QTc Int : 484 ms Normal sinus rhythm RSR' or QR pattern in V1 suggests right ventricular conduction delay Prolonged QT Abnormal ECG No previous ECGs available Confirmed by Hermann Tracy ([id number]) on 02/09/2021 1:52:19 PM Referred By: REFERRED SELF Confirmed By:Hermann Tracy
[2021-02-09] MEDS ORDERED: oxyCODONE/ACETAMINOPHEN 5mg/325mg TAB PO PRN ×2 (14:56)
[2021-02-09] MEDS ORDERED: MoRPHine SULFATE 2 MG/ML CARP IV PRN (14:56)
[2021-02-09] MEDS ORDERED: diphenhydrAMINE 50 MG/ML VIAL IV PRN (14:56)
[2021-02-09] MEDS: CHECK SCOPOLAMINE PATCH PLACEMENT SCH (17:07)
[2021-02-09] MEDS: KETOROLAC TROMETHAMINE 15 MG/ML VIAL IV SCH ×2 (17:08→21:11)
--- NOTE | 2021-02-09 17:15 | Anesthesiology Progress Note ---
Date of Service February 09, 2021 Anesthesia Post Procedure Vital Signs Vital Signs: Temp Pulse Pulse Pulse Pulse Pulse Resp 02/09/21 17:04 37.4 C 97 H 14 02/09/21 15:58 37.5 C 88 17 02/09/21 15:35 36.9 C 93 H 16 02/09/21 15:00 37.4 C 95 H 18 02/09/21 14:40 36.8 C 93 H 17 02/09/21 14:30 97 H 14 02/09/21 14:20 93 H 13 02/09/21 14:10 101 H 14 02/09/21 14:01 36 C L 100 H 18 02/09/21 07:06 36.6 C 88 16 02/09/21 04:45 36.7 C 93 H 17 02/09/21 04:04 81 16 02/09/21 02:32 74 16 02/09/21 00:01 89 16 02/08/21 19:38 36.2 C L 98 H 16 BP BP BP Pulse Ox 02/09/21 17:04 141/88 H 93 02/09/21 15:58 136/77 93 02/09/21 15:35 158/82 H 95 02/09/21 15:00 153/79 H 93 02/09/21 14:40 137/77 94 02/09/21 14:30 136/79 93 02/09/21 14:20 135/78 97 02/09/21 14:10 134/84 96 02/09/21 14:01 132/78 95 02/09/21 07:06 128/81 95 02/09/21 04:45 117/98 98 02/09/21 04:04 179/94 H 98 02/09/21 02:32 184/100 H 99 02/09/21 00:01 200/103 H 98 02/08/21 19:38 224/119 H 100 Pain Intensity Right Abdomen: Pain Intensity: 4 Transfer of Care Handoff Completed per policy Notes Mental Status: alert / awake / arousable and participated in evaluation Patient Amnestic to Procedure: Yes Nausea / Vomiting: adequately controlled Pain: adequately controlled Airway Patency, RR, SpO2: stable & adequate BP & HR: stable & adequate Hydration State: stable & adequate Anesthetic Complications: no major complications apparent and Pt Satisfied with anesthetic care Notes: Pt with cut on upper left lip from intubation. Informed patient of this complication. No other anesthetic concerns or questions.
[2021-02-10] MEDS: CHECK SCOPOLAMINE PATCH PLACEMENT SCH ×2 (00:18→08:20)
[2021-02-10] MEDS: cefOXitin 2,000 MG in DEXTROSE 5% 50 ML IV SCH ×2 (00:18→05:00)
[2021-02-10] MEDS: KETOROLAC TROMETHAMINE 15 MG/ML VIAL IV SCH ×2 (04:56→10:00)
[2021-02-10] MEDS: LACTATED RINGER'S 1,000 ML IV SCH (04:57)
--- NOTE | 2021-02-10 05:47 | Surgery Progress Note ---
Date of Service February 10, 2021 Assessment & Plan (1) Acute appendicitis: Plan: Postoperative day #1 laparoscopic appendectomy Continue analgesics Continue antiemetics Continue cefoxitin while in the hospital Encourage use of incentive spirometer Encourage continued ambulation We will advance diet and if tolerated will consider discharge home later today Admission and Anticipated Discharge Date Admission Date: February 09, 2021 Supervising Physician Co-Signing Physician Notes Patient seen and examined, agree with above. POD #1 laparoscopic appendectomy, doing well. On exam afebrile stable vitals, abdomen soft, probably tender to palpation, incisions without infection, some ecchymosis. Plan to discharge to home later this morning if tolerates breakfast. Wound care instructions, activity restrictions, and return precautions given. Follow-up in 2 weeks. Subjective Patient is resting comfortably in bed. She says she has tolerated liquids without any nausea, vomiting, or worsening abdominal pain. She denies shortness of breath. She says that since her surgery she has been up ambulating in the hallway and feels well. Physical Exam Gastrointestinal (Abdomen): Abdomen is soft and nondistended with positive bowel sounds. Incisions are clean, dry, intact. Bowel sounds are present. Appropriate tenderness is noted at surgical incisions. Results & Data ([facility]) Vital Signs (Past 12 Hours) Vital Signs Temp Pulse Resp BP Pulse Ox 02/09/21 23:06 36.6 C 79 20 143/81 H 95 02/09/21 18:01 37.3 C 96 H 17 152/84 H 92 PG Care Time/CCT Total # of Minutes Spent Total Time Spent with Patient: Total time spent is greater than 50% in coordination of care (as documented) at patient's floor/unit and/or counseling patient: Coding Level of Care Code None Diagnoses Acute appendicitis K35.80 Acute appendicitis type: unspecified acute appendicitis type (1) Acute appendicitis Acute appendicitis type: unspecified acute appendicitis type Qualified Code (s): K35.80 - Unspecified acute appendicitis
--- NOTE | 2021-02-10 19:54 | Discharge Summary ---
Date of Service February 10, 2021 Admission HPI Per Admitting Provider This is a 56-year-old female who presented to [facility] emergency department secondary to abdominal pain. Patient notes that the pain has been present for approximately 24 hours. The pain is located throughout her abdomen and generalized fashion. Patient notes that she suffers from irritable bowel syndrome alternating with episodes of constipation and diarrhea and notes that the pain initially began in pain that was similar to what she experienced from discomfort from her irritable bowel syndrome. She does note that the pain became somewhat more severe and did not resolve like it usually does so she presented to the emergency department. She denies any radiation of the pain. She notes that the pain is worse with certain movements and is improved with lying still with her knee slightly bent. She has had some nausea without any vomiting. She has had poor oral intake over the past 24 hours. Her most recent oral intake was some water several hours ago. She denies any prior abdominal surgeries. In the emergency department patient had labs and imaging which independent reviewed. CT scan of the abdomen pelvis showed the patient had a distended and thickened and inflamed appendix. A 6 mm appendicolith was noted in the distal appendix measured approximately 12 mm. These findings were felt to be consistent with acute appendicitis. CBC revealed white blood cell count was elevated at 20.32. Her hemoglobin and hematocrit were both within normal range. Platelet count was slightly elevated at 507,000. A chemistry profile showed sodium was 129. Potassium, BUN, and creatinine were all within normal range. Urinalysis was not indicative of infection. A Covid test has been performed and is pending. In addition test has not been performed as the patient reports she has already gone through menopause. Patient was noted to be hypertensive in the emergency department. Patient says that she was previously taking an antihypertensive medication but she stopped this as it made her cough. Patient notes that she is fairly active when she is feeling well. She says that she feels she can easily negotiate 2 flights of steps without any chest pain or shortness of breath. At the time of my interview the patient is resting comfortably in bed she was in no distress Discharge Data Consultations 02/09/21 00:45 ED Decision to Admit Stat Procedures Performed Operation Date: 02/09/21 11:00 Actual Procedures p Laparoscopic Appendectomy(Not Applicable) - Mak Lorenzo DO, FACS Hospital Course (1) Acute appendicitis: Patient presented [facility] emergency department on date of admission secondary to abdominal pain. Imaging, labs, and clinical presentation were consistent with acute appendicitis. Patient was therefore admitted to the hospital on observation status and provided with appropriate antibiotics. They following admission she was taken the operating room where she underwent a laparoscopic appendectomy. Her surgical course and postoperative course were uneventful. Her diet was advanced as tolerated and she was deemed stable for discharge home on postop day #1. She was instructed in appropriate wound care, diet, and activity. She is instructed to call Dr. Lorenzo office for 1 to 2-week follow-up appointment. Coding Level of Care Code None Diagnoses Acute appendicitis K35.80 Acute appendicitis type: unspecified acute appendicitis type
== END 2021-02-10 11:58 | disposition home or self-care (01) ==
LOC: 3E 19:35 → ED 19:35 → 3E 02-09 04:00